=== PATIENT | male | born 1960 | race Caucasian/White ===

== ENCOUNTER 2024-04-15 10:15 | Outpatient (CLI) | payer BC, MEDICARE, SELFPAY ==
[2024-04-15 11:18] LABS: Albumin Level 4.8 g/dl (3.5-5.0); Chloride 108 mmol/L (98-107); Potassium 3.8 mmoL/L (3.5-5.1); Sodium 143 mmol/L (136-145)
[2024-04-15 11:20] LABS: Blood Urea Nitrogen 11 mg/dl (9-20); Estimated Glomerular Filt Rate 61 ml/min (>60); GFR (African American) 74 ML/MIN (>60)
[2024-04-15 11:21] LABS: Alanine Aminotransferase 27 U/L (12-78); Albumin/Globulin Ratio 1.8 (1.1-1.8); Alkaline Phosphatase 63 U/L (38-126); Anion Gap 10.8 mEq/L (5-15); Aspartate Amino Transferase 28 U/L (17-59); Bilirubin,Total 0.7 mg/dl (0.2-1.3); Calcium 9.4 mg/dl (8.4-10.2); Carbon Dioxide 28 mmol/L (22.0-30.0); Globulin 2.7 g/dL (1.3-3.2); Glucose 90 mg/dl (74-100); Iron 122 ug/dL (49-181); Total Protein,Serum 7.5 g/dl (6.3-8.2)
[2024-04-15 11:28] LABS: C-Reactive Protein 1.7 mg/L (0-4)
[2024-04-15 11:33] LABS: Total Iron Binding Capacity 305 ug/dL (261-462)
[2024-04-15 11:55] LABS: Basophils # 0.1 K/mm3 (0-0.2); Basophils % 0.7 % (0.1-2.0); Eosinophils # 0.3 K/mm3 (0.0-0.4); Eosinophils % 4.9 % (0.1-12.0); Hematocrit 39.4 % (42.0-52.0); Hemoglobin 13.4 g/dL (14.1-18.0); INR 0.93 (0.9-1.1); Lymphocytes % 44.3 % (10-50); Mean Corpuscular Hemoglobin 29.5 pg (27.0-31.2); Mean Corpuscular Volume 86.6 fl (80-94); Mean Platelet Volume 9.7 fl (7.4-10.4); Monocytes # 0.6 K/mm3 (0.1-1.0); Monocytes % 8.9 % (1.7-9.3); Neutrophils # 2.8 K/mm3 (1.8-7.8); Neutrophils % 40.9 % (37.0-80.0); Platelet Count 183 K/mm3 (142-424); Prothrombin Time 10.3 seconds (9.2-12.1); Red Blood Count 4.55 M/mm3 (4.60-6.20); White Blood Count 6.8 K/mm3 (4.8-10.8)
[2024-04-15 11:57] LABS: Ferritin 113 ng/ml (17.9-464)
[2024-04-16 14:05] LABS: AFP, Tumor Marker <1.8 ng/mL (0.0-8.4)
[2024-04-18 02:08] LABS: ALT (SGPT) P5P 23 IU/L (0-55); AST (SGOT) P5P 25 IU/L (0-40); Alpha 2-Macroglobulins, Qn 343 mg/dL (110-276); Apolipoprotein A-1 135 mg/dL (101-178); Bilirubin, Total 0.4 mg/dL (0.0-1.2); Cholesterol, Total 151 mg/dL (100-199); GGT 15 IU/L (0-65); Glucose 88 mg/dL (70-99); Haptoglobin 103 mg/dL (32-363); Steatosis Score 0.28 (0.00-0.40); Triglycerides 239 mg/dL (0-149)
== END 2024-04-15 23:59 | disposition home or self-care (01) ==
LOC: LAB 10:19
PROVIDERS: PCP Nurse Practitioner; Visit Provider Internal Medicine Gastroenterology
DX: K50.90 Crohn's disease, unspecified, without complications (principal); K74.69 Other cirrhosis of liver; B19.20 Unspecified viral hepatitis C without hepatic coma
CPT/HCPCS: 36415; 80053; 82105; 82728; 83540; 83550; 85025; 85610; 86140

== ENCOUNTER 2024-06-26 07:24 | Day surgery (SDC) | payer BC, MEDICARE, SELFPAY ==
[2024-06-24 14:17] VITALS: BMI 25.7
[2024-06-26] VITALS (7 sets, daily range): BP systolic 78–114; BP diastolic 52–75; PULSE 68–76; RESP 16–18; TEMP 36.2–36.9; O2SAT 94–100
[2024-06-26] MEDS: LACTATED RINGERS 1000ML 1,000 ML 50 ML IV (08:16)
--- NOTE | 2024-06-26 08:28 | P.PNANES_ITS ---
[facility] Disclaimer: The information contained in this section may have been updated after the patient was seen, as this information can be updated by other users. Medical History Pituitary tumor MARCIAL (nonalcoholic steatohepatitis) Hemorrhoids Colon polyps Surgical History Hx of colonoscopy Hx of cholecystectomy History of colon resection Family History Other No significant family history Social History Smoking Status: Former smoker alcohol intake: never substance use type: denies use current occupational status: retired and disabled Travel in the last 8 weeks?: None Have you lived/traveled outside US in past 30 days?: No Contact w/someone who lives/traveled outside US past 30 days?: No Exposure to someone with infectious disease in past 14 days?: No Do you have a fever (greater than 100.4 F or 38 C)?: No Have you tested positive for COVID-19?: No Exposed to someone with COVID-19 in past 14 days?: No Do you have a sore throat?: No Do you have a cough?: No Do you have any weakness?: No Are you experiencing any nausea/vomitting?: No Do you have any diarrhea?: No Are you experiencing any unusual bleeding?: No Do you have any muscle aches/pain?: No Do you have any abdominal pain?: No Are you experiencing loss of taste or smell?: No [facility] Anesthesia Checklist Patient Identification Patient Identification: Arm Band Structural Data Admitted From: Home Planned Operative Procedure/s: Colonoscopy Consent for Planned Operative Procedure(s) Verified: Yes Verified Documents: Surgical Consent and History and Physical NPO Status Verified Time NPO: 03:45 (finished prep) Additional verifications Anesthesia Reactions: No Airway Assessment Mallampati Score:: Class II C-Spine Mobility Assessed: Yes TMJ Mobility Assessed: Yes Dentition: Good Dentition Neurological Assessment Level of Consciousness: Awake, Alert and Appropriate Anesthesia Plan Anesthesia Risk discussed: Yes Anesthesia Plan: Verified ASA Class: II Anesthesia Type: MAC
--- NOTE | 2024-06-26 08:33 | EXP.HP ---
History of Present Illness *Admission Date: 06/26/24 *Reason for visit:: Surveillance colonoscopy *History of present illness: Mr. Bach is a 63-year-old gentleman who is here for reestablishment of care. He is a long-term [facility] patient. The patient does have ileal Crohn's disease and has been on Humira 40 mg subcutaneously every other week and 6-mercaptopurine 100 mg daily. He did have prior ileocolonic resection and colonoscopy in February 2013 showed complete remission. His last colonoscopy in April 2018 revealed complete remission of the ileal Crohn's with normal anastomosis. He did have 3 polyps removed (tubular adenomas x 2/hyperplastic polyp x 1) removed. He is due for repeat surveillance colonoscopy now. He was last seen by me in the office in April 2023. The patient does have a history of heterozygous hemochromatosis (single mutation C282Y) and does have Marcial with advanced hepatic fibrosis and early cirrhosis. 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 He does have adrenal insufficiency, hypogonadism, hypothyroidism and hypopituitarism. He is on levothyroxine, testosterone and hydrocortisone. He had been seeing dermatology for his squamous cell skin cancers but he also has a history of seborrheic keratosis, actinic keratosis and verruca vulgaris. 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 Presently, he reports regular bowel movements which can sometimes be loose. He has no gassiness, bloating or abdominal pain. He reports no rectal bleeding or weight loss. He has no abdominal complaints. [facility] Disclaimer: The information contained in this section may have been updated after the patient was seen, as this information can be updated by other users. Medical History Pituitary tumor MARCIAL (nonalcoholic steatohepatitis) Hemorrhoids Colon polyps Surgical History Hx of colonoscopy Hx of cholecystectomy History of colon resection Family History Other No significant family history Social History Smoking Status: Former smoker alcohol intake: never substance use type: denies use current occupational status: retired and disabled Travel in the last 8 weeks?: None Have you lived/traveled outside US in past 30 days?: No Contact w/someone who lives/traveled outside US past 30 days?: No Exposure to someone with infectious disease in past 14 days?: No Do you have a fever (greater than 100.4 F or 38 C)?: No Have you tested positive for COVID-19?: No Exposed to someone with COVID-19 in past 14 days?: No Do you have a sore throat?: No Do you have a cough?: No Do you have any weakness?: No Are you experiencing any nausea/vomitting?: No Do you have any diarrhea?: No Are you experiencing any unusual bleeding?: No Do you have any muscle aches/pain?: No Do you have any abdominal pain?: No Are you experiencing loss of taste or smell?: No Review of Systems Review of Systems Review of systems (narrative): Negative *Cardiovascular Comments: Negative *Gastrointestinal Comments: Negative *Genitourinary Comments: Negative *Musculoskeletal Comments: Negative *Neurologic Comments: Negative Meds Home Medications and Allergies Home Medications ?Medication ?Instructions ?Recorded ?Confirmed ?Type hydrocortisone 10 mg tablet 10 mg PO BID 04/15/24 06/24/24 History levothyroxine 100 mcg tablet 100 mcg PO DAILY 04/15/24 06/24/24 History lifitegrast 5 % eye drops in a See Rx Instructions .Route .COMPLEX 04/15/24 06/24/24 History dropperette (Xiidra) psyllium husk (with sugar) 3 1 tbsp PO DAILY 04/15/24 06/24/24 History gram/12 gram oral powder (Konsyl (sugar)) testosterone 20.25 mg topical DAILY 04/15/24 06/24/24 History sodium,potassium,mag sulfates 17.5 See Rx Instructions PO .COMPLEX 06/11/24 06/24/24 Rx gram-3.13 gram-1.6 gram oral soln #354 mL (Suprep Bowel Prep Kit) adalimumab-adaz 40 mg/0.4 mL 40 mg SQ Q2W Crohn's disease 06/24/24 06/24/24 History subcutaneous pen injector (Hyrimoz(CF) Pen) colesevelam 625 mg tablet (WelChol) 625 mg PO BID Chronic diarrhea 06/24/24 06/24/24 History New Prescriptions to Start Prescriptions: Allergies Allergy/AdvReac Type Severity Reaction Status Date / Time No Known Allergies Allergy Verified 06/24/24 14:09 Exam Data for Last 24 hours Vital signs and Labs for Last 24 Hours: Temp Pulse Resp BP Pulse Ox O2 Del Method 97.2 F L 76 18 114/73 95 Room Air 06/26/24 08:17 06/26/24 08:17 06/26/24 08:17 06/26/24 08:17 06/26/24 08:17 06/26/24 08:17 I & O for Last 24 hours: Intake & Output 06/23/24 06/24/24 06/25/24 06/26/24 23:59 23:59 23:59 23:59 Weight 200 lb *Routine HEENT Exam Head: Present normocephalic Eye: Present EOMI and PERRL ENT: Present mucous membranes moist *Routine Neck Exam Neck: Present supple *Routine Respiratory Exam Respiratory: Present CTA bilaterally *Routine Cardiovascular Exam Cardiovascular: Present RRR *Routine Abdominal Exam Abdominal: Present soft and normoactive bowel sounds; Absent tenderness *Routine Rectal Exam Rectal:: deferred *Routine Genitalia Exam Genitalia:: deferred *Routine Extremities Exam Extremities: Absent cyanosis, clubbing or edema *Routine Skin Exam Skin: Present warm; Absent rash *Routine Neurological Exam Neurological: Present alert and oriented X3 Assessment and Plan *Assessment and plan (1) Personal history of adenomatous and serrated colon polyps: Status: Acute Category: Medical Code(s): Z86.0101 - Personal history of adenomatous and serrated colon polyps (2) Crohn's disease: Status: Acute Category: Medical Code(s): K50.90 - Crohn's disease, unspecified, without complications Plan A/P: 1. Personal history of adenomatous colon polyps and Crohn's disease is the preprocedural diagnosis. The patient will be anesthetized/sedated using MAC sedation. The patient has been seen and examined. Cardiac and lung assessment prior to the examination is stable. Proceed with planned surveillance colonoscopy.
--- NOTE | 2024-06-26 08:34 | P.PCN_ITS ---
[facility] Procedure Note Date: 06/26/24 Time: 08:51 Procedure Note:: Colonoscopy Procedure Report: Colonoscopy with cold snare polypectomy and cold biopsies Endoscopist: Srinivasan Kohli II, MD Referring physician: VONNIE Kennedy, [address] [place] [address] [place] [address] Date of Procedure: June 26, 2024 Equipment: Olympus 190 variable stiffness pediatric colonoscope Sedation: MAC sedation Indication: Mr. Bach is a 63-year-old gentleman who is here for follow-up surveillance colonoscopy. He is a long-term [facility] patient. The patient does have ileal Crohn's disease and has been on Humira 40 mg subcutaneously every other week and 6-mercaptopurine 100 mg daily. He did have prior ileocolonic resection and colonoscopy in February 2013 showed complete remission. His last colonoscopy in April 2018 revealed complete remission of the ileal Crohn's with normal anastomosis. He did have 3 polyps removed (tubular adenomas x 2/hyperplastic polyp x 1) removed. He is due for repeat surveillance colonoscopy now. The patient does have a history of heterozygous hemochromatosis (single mutation C282Y) and does have MARCIAL with advanced hepatic fibrosis and early cirrhosis. 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 He does have adrenal insufficiency, hypogonadism, hypothyroidism and hypopituitarism. He is on levothyroxine, testosterone and hydrocortisone. He had been seeing dermatology for his squamous cell skin cancers but he also has a history of seborrheic keratosis, actinic keratosis and verruca vulgaris. 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 Presently, he reports regular bowel movements which can sometimes be loose. He has no gassiness, bloating or abdominal pain. He reports no rectal bleeding or weight loss. He has no abdominal complaints. Procedure: Prior to the procedure, a history and physical exam was performed, and patient's medications and allergies were reviewed. The risks, benefits and alternatives of the sedation and procedure were discussed with the patient. All questions were answered and informed consent was obtained. The patient was brought to the procedure room. Patient identification and proposed procedure were verified by the physician and the nurse. The patient was placed in a left lateral decubitus position and the scope was passed under direct vision. Throughout the procedure, the patient's blood pressure, pulse, and oxygen saturations were monitored continuously. The colonoscopy was accomplished without difficulty. The patient tolerated the procedure well. Findings: On digital rectal examination there was normal rectal tone. There were no external hemorrhoids. The colonoscope was introduced through the anal canal to the rectum and advanced to the ileocolonic anastomosis which is a [id number] anastomosis. There were a few small aphthous erosions within the first 1 to 2 cm of ileum but there was no evidence of any Crohn's activity proximal to this in the ileum. Cold biopsies were taken from the distal ileum. The scope was then withdrawn into the colon. The remaining ascending and transverse colon and mucosa were grossly normal. There was a single 8 mm polyp in the descending colon removed via cold snare polypectomy. There were scattered diverticuli throughout the descending and sigmoid colon (LEFT colon). The rectum itself was normal. Upon retroflexion within the rectum there were grade 2 internal hemorrhoids. The preparation was excellent throughout with [place] Preparation Score of 9. The cecal time was 12 minutes. Impression: 1. Descending colon polyp (8 mm) 2. Very mild Crohn's ileitis (few aphthous erosions in distal 2 cm of ileum) 3. Left-sided diverticulosis 4. Grade 2 internal hemorrhoids Plan: I will follow-up the polyp histology and recommend repeat surveillance colonoscopy again in 5 years. I would continue Humira as maintenance therapy. I would continue the colestipol at bedtime and recommend bulking fiber (FiberCon 2 tablets every morning). I will have him follow-up annually for a well visit. The patient does have well compensated cirrhosis. Well compensated cirrhosis means that the liver is scarred but still functions adequately with few or no symptoms and the body can cope with this reduced liver function. This is certainly why I sometimes quote the statistic that 80% of persons with cirrhosis in this country are unaware that it exists. With well compensated cirrhosis, the liver is still able to perform its essential tasks. We do know that is well compensated from a number of factors including the MELD score less than 10 as well as no signs of portal hypertension. Persons with compensated cirrhosis can live for many years. When cirrhosis progresses to decompensation, the median survival drops to around 2 years without liver transplant.
== END 2024-06-26 09:52 | disposition home or self-care (01) ==
PROVIDERS: PCP Nurse Practitioner; Visit Provider Internal Medicine Gastroenterology
PROC: 0DJD8ZZ Inspection of Lower Intestinal Tract, Via Natural or Artificial Opening Endoscopic (ICD-10-PCS; CPT 45378; principal; 2024-06-26 09:00)
DX: Z12.11 Encounter for screening for malignant neoplasm of colon (principal); Z86.0101 Personal history of adenomatous and serrated colon polyps; K50.90 Crohn's disease, unspecified, without complications; K63.5 Polyp of colon; K50.018 Crohn's disease of small intestine with other complication; K57.30 Diverticulosis of large intestine without perforation or abscess without bleeding; K64.1 Second degree hemorrhoids
CPT/HCPCS: 45380; 45385; J7120